=== PATIENT | male | born 1950 | race African-American/Black ===

== ENCOUNTER 2016-10-22 08:55 | Outpatient (CLI) | payer MEDICARE, OTHER ==
[2016-10-22 09:31] LABS: Anion Gap 15 mmol/L (10-20); BUN (Urea Nitrogen) 16 mg/dL (8.4-25.7); Calc. Creatinine Clearance 0 mL/min (70-130); Calcium 9.1 mg/dL (7.8-10.44); Carbon Dioxide 25 mmol/L (23-31); Chloride 106 mmol/L (98-107); Estimated GFR-MDRD Greater than 90; Glucose 128 mg/dL (80-115); Potassium 3.9 mmol/L (3.5-5.1); Sodium 142 mmol/L (136-145)
== END 2016-10-22 08:56 ==
LOC: MADLABBHPM 08:55
PROVIDERS: ATTEND Family Medicine
DX: E03.9 Hypothyroidism, unspecified (principal)
CPT/HCPCS: 36415; 80048; 84443

== ENCOUNTER 2016-12-10 10:56 | Outpatient (CLI) | payer MEDICARE, OTHER ==
--- NOTE | 2016-12-10 14:22 | RAD ---
THREE VIEWS LEFT SHOULDER: COMPARISON: None. HISTORY: Left shoulder pain for a month. FINDINGS: Three views of the left shoulder show no evidence of acute fracture or dislocation. No degenerative changes are seen. The visualized left thorax is unremarkable. IMPRESSION: Unremarkable exam. POS: [facility]
== END 2016-12-10 10:57 | disposition home or self-care (01) ==
LOC: MADRAD 10:56
PROVIDERS: ATTEND Family Medicine
DX: M25.512 Pain in left shoulder (principal)

== ENCOUNTER 2017-02-11 09:52 | Outpatient (CLI) | payer MEDICARE, OTHER | END 2017-02-11 09:53 | disposition home or self-care (01) | LOC: MADLABBHPM 09:52 | PROVIDERS: ATTEND Family Medicine | DX: M50.10 Cervical disc disorder with radiculopathy, unspecified cervical region (principal) | CPT/HCPCS: 36415; 82565; 84520 ==

== ENCOUNTER 2017-03-16 22:34 | Emergency (ER) | payer MEDICARE, OTHER ==
--- NOTE | 2017-03-16 23:52 | RAD ---
PORTABLE AP CHEST X-RAY 03/16/17 HISTORY: Chest pain. COMPARISON: 06/07/16 There has been interval placement of a dual lead left subclavian cardiac pacemaking device. The card iac silhouette and pulmonary vasculature are within normal limits for the portable technique of the exam. There is mild elevation of the right hemidiaphragm. Mild linear densities are seen on the late ral left mid lung zone which is probably related to vascular structures and atelectasis. The lungs a re otherwise clear. No other interval change. IMPRESSION: No acute cardiopulmonary process. POS: [facility]
[2017-03-16 23:59] LABS: INR-International Normal Ratio 1.1; PTT 32.4 SEC (22.9-36.1); Prothrombin Time 14.3 SEC (12.0-14.7)
[2017-03-17] LABS: #Basophils 0.1 thou/uL (0.0-0.2); #Eosinphils 0.2 thou/uL (0.0-0.7); #Lymphocytes 1.4 thou/uL (1.20-3.40); #Monocytes 0.5 thou/uL (0.11-0.59); #Neutrophils 4.5 thou/uL (1.40-6.50); %Basophils 1.4 % (0.0-1.0); %Eosinophils 2.9 % (0.0-10.0); %Lymphocytes 20.8 % (21.0-51.0); %Neutrophils 66.9 % (42.0-75.0); Hemoglobin 14.8 g/dL (14.0-18.0); Mean Corpuscular HGB CONC 32.5 g/dL (32.0-36.0); Mean Corpuscular Hemoglobin 30.3 pg (27.0-31.0); Mean Corpuscular Volume 93.3 fl (80.0-94.0); Mean Platelet Volume 7.5 fL (7.4-10.4); Platelet Count 168 thou/uL (130-400); RBC Distribution Width 12.6 % (11.5-14.5); Red Blood Cell (RBC) Count 4.89 mill/uL (4.70-6.10); White Blood Cell (WBC) Count 6.7 thou/uL (4.8-10.8)
[2017-03-17 00:05] LABS: ALT (SGPT) 37 U/L (8-55); AST (SGOT) 32 U/L (5-34); Albumin 3.8 g/dL (3.4-4.8); Alkaline Phosphatase 86 U/L (40-150); Anion Gap 15 mmol/L (10-20); BUN (Urea Nitrogen) 26 mg/dL (8.4-25.7); Bilirubin, Total 1.3 mg/dL (0.2-1.2); CK (CPK) 258 U/L (30-200); Calc. Creatinine Clearance 0 mL/min (70-130); Calcium 9.4 mg/dL (7.8-10.44); Carbon Dioxide 26 mmol/L (23-31); Chloride 107 mmol/L (98-107); Estimated GFR-MDRD 78; Globulin 3.7 g/dL (2.4-3.5); Glucose 203 mg/dL (80-115); Potassium 3.8 mmol/L (3.5-5.1); Protein, Total 7.5 g/dL (5.8-8.1); Sodium 144 mmol/L (136-145)
[2017-03-17 00:10] LABS: Clarity Clear (Clear)
[2017-03-17 00:11] LABS: Bacteria/HPF Rare-Few HPF (None Seen); Bilirubin Negative (Negative); Blood, Urine Trace (Negative); Glucose, Urine (Dipstick) 100 mg/dL (Negative); Leukocyte Negative (Negative); Nitrite Negative (Negative); Protein, Urine (Dipstick) 30 mg/dL (Neg-Trace); Specific Gravity, Urine 1.026 (1.005-1.030); Urobilinogen 0.2 mg/dL (0.2-1.0); WBC/HPF 0-3 HPF (0-3)
[2017-03-17 00:17] LABS: CKMB 2.6 ng/mL (0-6.6); Troponin I Less than 0.010 ng/mL (< 0.028)
== END 2017-03-17 00:48 | disposition home or self-care (01) ==
LOC: MADERS 22:34
DX: E86.0 Dehydration (principal); E11.9 Type 2 diabetes mellitus without complications; I10 Essential (primary) hypertension; Z79.82 Long term (current) use of aspirin; Z79.899 Other long term (current) drug therapy
CPT/HCPCS: 36415; 71010; 80053; 81001; 82553; 83735; 83880; 84443; 84484; 85025; 85610; 85730; 87086; 93005; 94760

== ENCOUNTER 2017-03-19 08:02 | Outpatient (CLI) | payer MEDICARE, OTHER | END 2017-03-19 08:03 | disposition home or self-care (01) | LOC: MADLABBHPM 08:02 | PROVIDERS: ATTEND Family Medicine | DX: M50.10 Cervical disc disorder with radiculopathy, unspecified cervical region (principal) | CPT/HCPCS: 36415; 82565; 84520 ==

== ENCOUNTER 2017-06-30 15:07 | Emergency (ER) | payer MEDICARE, OTHER ==
[2017-06-30] MEDS ORDERED: Dexamethasone 4 MG TAB ONE (15:37)
== END 2017-06-30 15:40 | disposition home or self-care (01) ==
LOC: MADERS 15:07
DX: T63.461A Toxic effect of venom of wasps, accidental (unintentional), initial encounter (principal); E11.9 Type 2 diabetes mellitus without complications; I10 Essential (primary) hypertension
CPT/HCPCS: 99282; J8540

== ENCOUNTER 2017-09-18 13:09 | Emergency (ER) | payer MEDICARE, OTHER ==
--- NOTE | 2017-09-18 16:50 | RAD ---
CHEST ONE VIEW: 09/18/17 HISTORY: Chest and abdomen pain. COMPARISON: 03/16/17 FINDINGS: The cardiac silhouette is magnified by projection. Pulmonary vasculature is unremarkable. There is no confluent air space consolidation, or evidence of free subdiaphragmatic gas. security monitor leads o verlie the chest. IMPRESSION: No active cardiopulmonary abnormalities are demonstrated. POS: [facility]
[2017-09-18] MEDS ORDERED: Ketorolac Tromethamine 30 MG/ML VIAL ONE (16:51)
[2017-09-18] MEDS ORDERED: Morphine 4 MG/ML VIAL ONE (16:51)
[2017-09-18] MEDS ORDERED: Ondansetron HCl/PF 4 MG/2 ML Vial ONE (16:51)
[2017-09-18 16:54] LABS: Bilirubin Negative (Negative); Blood, Urine Negative (Negative); Glucose, Urine (Dipstick) Negative (Negative); Leukocyte Negative (Negative); Nitrite Negative (Negative); Protein, Urine (Dipstick) Trace mg/dL (Neg-Trace); Specific Gravity, Urine 1.025 (1.005-1.030); pH, Urine 5.5 (5.0-9.0)
[2017-09-18 16:55] LABS: RBC/HPF 0-3 HPF (0-3)
[2017-09-18 16:56] LABS: Bacteria/HPF 1+ HPF (None Seen); WBC/HPF 0-3 HPF (0-3)
[2017-09-18 17:14] LABS: #Eosinphils 0.1 thou/uL (0.0-0.7); #Lymphocytes 1.2 thou/uL (1.20-3.40); #Monocytes 0.5 thou/uL (0.11-0.59); #Neutrophils 4.2 thou/uL (1.40-6.50); %Basophils 0.6 % (0.0-1.0); %Lymphocytes 19.7 % (21.0-51.0); %Monocytes 8.8 % (0.0-10.0); Mean Corpuscular Hemoglobin 29.9 pg (27.0-31.0); Mean Corpuscular Volume 93.3 fl (80.0-94.0); Mean Platelet Volume 5.7 fL (7.4-10.4); Platelet Count 196 thou/uL (130-400); RBC Distribution Width 12.8 % (11.5-14.5); Red Blood Cell (RBC) Count 5.01 mill/uL (4.70-6.10); White Blood Cell (WBC) Count 6.1 thou/uL (4.8-10.8)
[2017-09-18 17:34] LABS: ALT (SGPT) 39 U/L (8-55); AST (SGOT) 32 U/L (5-34); Albumin 3.8 g/dL (3.4-4.8); Alkaline Phosphatase 102 U/L (40-150); Anion Gap 18 mmol/L (10-20); BUN (Urea Nitrogen) 14 mg/dL (8.4-25.7); Bilirubin, Total 0.6 mg/dL (0.2-1.2); Calc. Creatinine Clearance 0 mL/min (70-130); Calcium 9.4 mg/dL (7.8-10.44); Carbon Dioxide 23 mmol/L (23-31); Chloride 106 mmol/L (98-107); Estimated GFR-MDRD Greater than 90; Globulin 3.6 g/dL (2.4-3.5); Glucose 108 mg/dL (80-115); Lipase 75 U/L (8-78); Potassium 4.2 mmol/L (3.5-5.1); Protein, Total 7.4 g/dL (5.8-8.1); Sodium 143 mmol/L (136-145)
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
== END 2017-09-18 20:14 | disposition home or self-care (01) ==
LOC: MADERS 13:09
DX: B34.9 Viral infection, unspecified (principal); R10.11 Right upper quadrant pain; R10.12 Left upper quadrant pain
CPT/HCPCS: 36415; 71010; 74176; 80053; 81001; 82150; 83605; 83690; 85025; 87086; 93005; 96374; 96375; J1885; J2270; J2405

== ENCOUNTER 2018-02-23 21:41 | Emergency (ER) | payer MEDICARE, MEDICAID ==
[2018-02-23] MEDS ORDERED: HYDROcodone/Acetaminophen 5/325 mg Tablet ONE (22:04)
[2018-02-23] MEDS ORDERED: Acetaminophen 325 MG TAB ONE (22:05)
[2018-02-23] MEDS ORDERED: Ibuprofen 800 MG TAB ONE (22:05)
[2018-02-23] MEDS ORDERED: AMOXicillin 250 MG CAP ONE (22:05)
== END 2018-02-23 22:13 | disposition home or self-care (01) ==
LOC: MADERS 21:41
DX: K02.9 Dental caries, unspecified (principal); J01.90 Acute sinusitis, unspecified; E11.9 Type 2 diabetes mellitus without complications; I10 Essential (primary) hypertension; Z86.73 Personal history of transient ischemic attack (TIA), and cerebral infarction without residual deficits
CPT/HCPCS: 99282

== ENCOUNTER 2018-10-27 08:22 | Outpatient (CLI) | payer MEDICARE, MEDICAID ==
--- NOTE | 2018-10-27 10:00 | ULT ---
ULTRASOUND RETROPERITONEUM LIMTED: (ABDOMINAL AORTA) HISTORY: 68-year-old male for abdominal aortic aneurysm screening. FINDINGS: The caliber of the entire abdominal aorta is normal. IMPRESSION: No abdominal aortic aneurysm. jn [] POS: [facility]
== END 2018-10-27 08:23 | disposition home or self-care (01) ==
LOC: MADULT 08:22
PROVIDERS: ATTEND Family Medicine
DX: Z13.6 Encounter for screening for cardiovascular disorders (principal)
CPT/HCPCS: 76706

== ENCOUNTER 2018-11-20 11:05 | Emergency (ER) | payer MEDICARE, MEDICAID ==
[2018-11-20 11:37] LABS: #Eosinphils 0.4 thou/uL (0.0-0.7); #Lymphocytes 1.1 thou/uL (1.20-3.40); #Monocytes 0.4 thou/uL (0.11-0.59); #Neutrophils 2.1 thou/uL (1.40-6.50); %Basophils 0.9 % (0.0-1.0); %Eosinophils 10.7 % (0.0-10.0); %Lymphocytes 27.9 % (21.0-51.0); %Monocytes 9.4 % (0.0-10.0); %Neutrophils 51.2 % (42.0-75.0); Hemoglobin 13.6 g/dL (14.0-18.0); Mean Corpuscular HGB CONC 31.6 g/dL (32.0-36.0); Mean Corpuscular Hemoglobin 30.3 pg (27.0-31.0); Mean Corpuscular Volume 95.9 fL (78.0-98.0); Mean Platelet Volume 5.9 fL (7.4-10.4); Platelet Count 178 thou/uL (130-400); White Blood Cell (WBC) Count 4.1 thou/uL (4.8-10.8)
--- NOTE | 2018-11-20 11:49 | RAD ---
PORTABLE CHEST: Date: 11/20/18 HISTORY: Chest pain. COMPARISON: 09/18/17 exam. FINDINGS: Heart size within normal limits. Pacemaker present. Lungs are clear of infiltrates. IMPRESSION: No active intrathoracic disease. POS: [facility]
[2018-11-20 11:59] LABS: ALT (SGPT) 30 U/L (8-55); AST (SGOT) 33 U/L (5-34); Albumin 3.9 g/dL (3.4-4.8); Alkaline Phosphatase 87 U/L (40-150); Anion Gap 11 mmol/L (10-20); BUN (Urea Nitrogen) 19 mg/dL (8.4-25.7); Bilirubin, Total 0.9 mg/dL (0.2-1.2); CK (CPK) 316 U/L (30-200); Calc. Creatinine Clearance 0 mL/min (70-130); Calcium 9.2 mg/dL (7.8-10.44); Carbon Dioxide 28 mmol/L (23-31); Chloride 108 mmol/L (98-107); Estimated GFR-MDRD Greater than 90; Globulin 3.2 g/dL (2.4-3.5); Glucose 70 mg/dL (80-115); Lipase 111 U/L (8-78); Protein, Total 7.1 g/dL (5.8-8.1); Sodium 143 mmol/L (136-145)
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
== END 2018-11-20 15:51 | disposition home or self-care (01) ==
LOC: MADERS 11:05
DX: R07.89 Other chest pain (principal); R10.84 Generalized abdominal pain; G89.29 Other chronic pain; I49.9 Cardiac arrhythmia, unspecified; I10 Essential (primary) hypertension; E11.9 Type 2 diabetes mellitus without complications; Z86.73 Personal history of transient ischemic attack (TIA), and cerebral infarction without residual deficits; Z79.82 Long term (current) use of aspirin; Z79.899 Other long term (current) drug therapy
CPT/HCPCS: 71045; 74176; 80053; 82550; 83690; 84484; 85025; 93005; 94760

== ENCOUNTER 2019-01-14 10:03 | Outpatient (CLI) | payer MEDICARE, MEDICAID ==
--- NOTE | 2019-01-14 10:28 | RAD ---
XR Shoulder Lt 3 View STANDARD: 01/14/2019 10:15 AM CLINICAL INDICATION: Chronic left shoulder pain without trauma. COMPARISON: Prior radiograph of the left shoulder dated 06/02/2018 FINDINGS: Three views of the left shoulder. No acute fracture or subluxation. Visualized lung chang are clear. There is a dual-lead pacemaker o verlying the left chest wall. IMPRESSION: No acute fracture or dislocation of the left shoulder.
[2019-01-14 10:33] LABS: ALT (SGPT) 31 U/L (8-55); AST (SGOT) 40 U/L (5-34); Albumin 3.9 g/dL (3.4-4.8); Alkaline Phosphatase 96 U/L (40-150); Anion Gap 11 mmol/L (10-20); BUN (Urea Nitrogen) 20 mg/dL (8.4-25.7); Bilirubin, Total 0.9 mg/dL (0.2-1.2); Calc. Creatinine Clearance 0 mL/min (70-130); Calcium 9.3 mg/dL (7.8-10.44); Carbon Dioxide 28 mmol/L (23-31); Chloride 108 mmol/L (98-107); Estimated GFR-MDRD 89; Globulin 3.4 g/dL (2.4-3.5); Glucose 98 mg/dL (80-115); Potassium 4.2 mmol/L (3.5-5.1); Protein, Total 7.3 g/dL (5.8-8.1); Sodium 143 mmol/L (136-145)
[2019-01-14 17:18] LABS: Hemoglobin A1c 5.6 % (4.0-6.0)
== END 2019-01-14 10:04 | disposition home or self-care (01) ==
LOC: MADLABBHPM 10:03
PROVIDERS: ATTEND Family Medicine
DX: M25.512 Pain in left shoulder (principal); E03.9 Hypothyroidism, unspecified; R74.8 Abnormal levels of other serum enzymes; Z86.39 Personal history of other endocrine, nutritional and metabolic disease
CPT/HCPCS: 36415; 80053; 83036; 84443

== ENCOUNTER 2019-06-17 11:11 | Outpatient (CLI) | payer MEDICARE, MEDICAID ==
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
--- NOTE | 2019-06-17 11:51 | RAD ---
XR Knee Lt 4 View STANDARD: 06/17/2019 11:20 AM CLINICAL INDICATION: Chronic left knee pain COMPARISON: None. FINDINGS: Bones: No acute fracture is demonstrated. Joints: There are marginal osteophytes affecting all major compartments of the left knee with mild me dial femorotibial joint compartmental narrowing suggested. There is chondrocalcinosis seen within the menisci. There is mild joint capsular distention.. Soft Tissue: No acute abnormality.. IMPRESSION: Moderate osteoarthrosis of left knee with chondrocalcinosis. There is mild joint capsular distention. .
== END 2019-06-17 11:12 | disposition home or self-care (01) ==
LOC: MADRAD 11:11
PROVIDERS: ATTEND Family Medicine
DX: M54.5 Low back pain (principal); M23.52 Chronic instability of knee, left knee; M17.12 Unilateral primary osteoarthritis, left knee; M25.852 Other specified joint disorders, left hip; M11.262 Other chondrocalcinosis, left knee; M47.816 Spondylosis without myelopathy or radiculopathy, lumbar region; W19.XXXA Unspecified fall, initial encounter
CPT/HCPCS: 72100

== ENCOUNTER 2019-11-11 10:28 | Outpatient (CLI) | payer MEDICARE, MEDICAID ==
[2019-11-11 10:49] LABS: #Eosinphils 0.2 thou/uL (0.0-0.7); #Lymphocytes 1.5 thou/uL (1.20-3.40); #Monocytes 0.4 thou/uL (0.11-0.59); #Neutrophils 1.6 thou/uL (1.40-6.50); %Basophils 0.8 % (0.0-1.0); %Eosinophils 6.5 % (0.0-10.0); %Lymphocytes 39.9 % (21.0-51.0); %Monocytes 10.1 % (0.0-10.0); %Neutrophils 42.7 % (42.0-75.0); Hemoglobin 15.2 g/dL (14.0-18.0); Mean Corpuscular HGB CONC 29.7 g/dL (32.0-36.0); Mean Corpuscular Hemoglobin 28.3 pg (27.0-31.0); Mean Corpuscular Volume 95.1 fL (78.0-98.0); Mean Platelet Volume 6.2 fL (7.4-10.4); Platelet Count 159 thou/uL (130-400); RBC Distribution Width 12.8 % (11.5-14.5); Red Blood Cell (RBC) Count 5.38 mill/uL (4.70-6.10); White Blood Cell (WBC) Count 3.7 thou/uL (4.8-10.8)
[2019-11-11 11:05] LABS: Anisocytosis SLIGHT = 6-15 cells (100X) (0-5/hpf); Platelet Morphology Comment Appears Adequate
[2019-11-11 11:12] LABS: ALT (SGPT) 24 U/L (8-55); AST (SGOT) 24 U/L (5-34); Albumin 4.2 g/dL (3.4-4.8); Alkaline Phosphatase 101 U/L (40-110); Anion Gap 13 mmol/L (10-20); BUN (Urea Nitrogen) 14 mg/dL (8.4-25.7); Bilirubin, Total 0.9 mg/dL (0.2-1.2); CRP (Inflammatory) Less than 0.50 mg/dL (= or < 0.5); Calc. Creatinine Clearance 0 mL/min (70-130); Calcium 9.3 mg/dL (7.8-10.44); Carbon Dioxide 28 mmol/L (23-31); Chloride 107 mmol/L (98-107); Estimated GFR-MDRD Greater than 90; Globulin 3.6 g/dL (2.4-3.5); Glucose 112 mg/dL (80-115); Potassium 4.4 mmol/L (3.5-5.1); Protein, Total 7.8 g/dL (5.8-8.1); Sodium 144 mmol/L (136-145); Uric Acid 3.8 mg/dL (3.5-7.2)
--- NOTE | 2019-11-11 12:42 | RAD ---
RIGHT SHOULDER 2 VIEWS: Date: 11/11/2019 HISTORY: Chronic pain with recent trauma. FINDINGS: There is some moderate arthrosis of the AC joint. There is also arthritic change of the glenohumeral joint. No fracture. IMPRESSION: Mild to moderate arthritic changes of the shoulder. POS: [facility]
--- NOTE | 2019-11-11 13:10 | RAD ---
RIGHT KNEE 3 VIEWS: Date: 11/11/2019 HISTORY: Chronic knee pain. FINDINGS: There are mild arthritic changes of the patellofemoral and medial compartment of the knee. A very tin y joint effusion is seen. IMPRESSION: Mild arthritic changes of the knee, which appear more pronounced at the patellofemoral joint space le bianka. POS: [facility]
[2019-11-11 17:35] LABS: HIV (1/2) Antibody/Antigen Non-Reactive (NonReactive); HIV 1/2 INDEX 0.27 S/CO (<1.00)
[2019-11-12 23:08] LABS: Chlam.trachomatis by PCR,Urine Not Detected (NotDetected)
== END 2019-11-11 10:29 | disposition home or self-care (01) ==
LOC: MADLABBHPM 10:28
PROVIDERS: ATTEND Family Medicine
DX: Z11.4 Encounter for screening for human immunodeficiency virus [HIV] (principal); Z11.3 Encounter for screening for infections with a predominantly sexual mode of transmission; M25.511 Pain in right shoulder; M25.561 Pain in right knee; M17.11 Unilateral primary osteoarthritis, right knee; M19.011 Primary osteoarthritis, right shoulder
CPT/HCPCS: 36415; 80053; 84550; 85025; 85652; 86140; 87389; 87491; 87591

== ENCOUNTER 2019-11-11 14:20 | Inpatient (IN) | payer MEDICARE, MEDICAID ==
[2019-11-11 14:25] VITALS: BMI 26.2
[2019-11-11] MEDS ORDERED: Acetaminophen 325 MG TAB PO PRN (15:06)
[2019-11-11] MEDS: Latanoprost 0.005% Ophth Soln 2.5 ml Bottle EA EYE SCH (21:08)
[2019-11-11] MEDS: Tamsulosin HCl 0.4 MG CAP PO SCH (21:09)
[2019-11-11] MEDS: FINASTERIDE 1 MG PO SCH (21:10)
[2019-11-11] MEDS: traMADol HCl 50 MG TAB PO PRN (21:14)
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
[2019-11-12] MEDS: Levothyroxine Sodium 100 MCG TAB PO SCH (05:36)
[2019-11-12] MEDS: traMADol HCl 50 MG TAB PO PRN (07:28)
[2019-11-12] MEDS: Aspirin 81 mg Enteric Coated Tablet PO SCH (08:30)
[2019-11-12] MEDS: Gabapentin 300 MG CAP PO SCH (08:30)
[2019-11-12] MEDS: methylPREDNISolone 4 mg Tablet PO SCH (08:30)
[2019-11-12] MEDS ORDERED: traMADol HCl 50 MG TAB PO PRN ×2 (11:49)
[2019-11-12] MEDS: Tamsulosin HCl 0.4 MG CAP PO SCH (21:14)
[2019-11-12] MEDS: Latanoprost 0.005% Ophth Soln 2.5 ml Bottle EA EYE SCH (21:14)
[2019-11-12] MEDS: FINASTERIDE 1 MG PO SCH (21:15)
[2019-11-13] MEDS: Levothyroxine Sodium 100 MCG TAB PO SCH (05:52)
[2019-11-13] MEDS: Gabapentin 300 MG CAP PO SCH (08:42)
[2019-11-13] MEDS: Aspirin 81 mg Enteric Coated Tablet PO SCH (08:42)
[2019-11-13] MEDS: methylPREDNISolone 4 mg Tablet PO SCH (08:42)
[2019-11-13] MEDS: Latanoprost 0.005% Ophth Soln 2.5 ml Bottle EA EYE SCH (20:15)
[2019-11-13] MEDS: Tamsulosin HCl 0.4 MG CAP PO SCH (20:15)
[2019-11-13] MEDS ORDERED: FINASTERIDE 1 MG PO SCH (21:00)
[2019-11-14] MEDS: Levothyroxine Sodium 100 MCG TAB PO SCH (05:38)
[2019-11-14] MEDS ORDERED: predniSONE 20 MG TAB PO SCH (08:00)
[2019-11-14] MEDS: Aspirin 81 mg Enteric Coated Tablet PO SCH (08:59)
[2019-11-14] MEDS: Gabapentin 300 MG CAP PO SCH (08:59)
[2019-11-14 09:21] VITALS: BP 120/71; TEMP 96.5
--- NOTE | 2019-11-16 15:16 | DIS ---
DATE OF ADMISSION: 11/11/2019 DATE OF DISCHARGE: 11/14/2019 CHIEF COMPLAINT: General weakness, severe pain, right shoulder, right knee pain and unsteady gait. DIAGNOSES: 1. Osteoarthritis, right shoulder. 2. Degenerative joint disease, right knee. 3. Deconditioning secondary to general weakness. 4. Unsteady gait. 5. Hypothyroidism. 6. Leukopenia, chronic, stable, asymptomatic. 7. Benign prostatic hypertrophy. 8. Neuropathic pain. DISPOSITION: Home. CONDITION ON DISCHARGE: Stable. MEDICATIONS: 1. Prednisone 30 mg p.o. daily for to start on 11/15/2019. 2. Levothyroxine 100 mcg p.o. q.a.m. 3. Gabapentin 300 mg p.o. daily. 4. Aspirin 81 mg p.o. daily. 5. Flonase 50 mg spray in each nostril, one spray in each nostril daily. 6. Tamsulosin 0.5 mg p.o. daily at bedtime. 7. Finasteride 1 mg p.o. at bedtime. DISCHARGE INSTRUCTIONS: DIET: Regular. ACTIVITY: Ad leodan. FOLLOWUP: 1. With Dr. Beltrán in 1 to 2 weeks. 2. Referred to [facility] for [facility], PT and OT. HISTORY OF THE PRESENT ILLNESS AND HOSPITAL COURSE: Mr. Burt is a 69-year-old male with significant history of CVA, TIA, chronic abnormality of gait secondary to impairment of balance deemed from the instability of the left knee and chronic left shoulder leading to recurrent falls in the past. The patient reports an acute right shoulder pain and right knee pain noted over the past few days prior to admission. The pain is associated with stiffness, inability to move his right arm and shoulder, difficulty doing above head activities and walking and persistent nocturnal pain with it. His x-ray of the right shoulder on 11/11/2019 showed [id number] arthritic change changes of the AC joint. There was no fracture and there was no arthritic change of the glenohumeral joint. X-rays of the right knee show on 11/11/2019, showed mild arthritic changes of the knee which appear more pronounced at the patellofemoral joint space level. CRP and ESR were normal. The patient was admitted directly to [facility] at [facility] for skilled rehab. The patient did well with rehab. He was treated with oral steroid and tramadol for pain. Prior to discharge, he was walking 500 feet using rolling walker with contact guard assist. He was noted to still have some slight unsteadiness on his feet after standing, slight fatigue and increased pain in the right shoulder when walking. On 11/14/2019, the patient is comfortable going back home. He chose to be referred to home health for outpatient therapy. The patient was deemed hemodynamically stable to go back home and would benefit further with continuous therapy at home. PHYSICAL EXAMINATION: Vital signs prior to discharge; blood pressure 120/71, temp 97, pulse 60, respirations 20, O2 98% on room air, weight 183 pounds and 3 ounces, height 6 feet. Job ID: [id number]
== END 2019-11-14 15:00 | disposition home or self-care (01) | DRG 554 ==
LOC: MADMS 14:20
PROVIDERS: ADMIT Family Medicine; ATTEND Family Medicine
DX: M19.011 Primary osteoarthritis, right shoulder (principal); Z86.73 Personal history of transient ischemic attack (TIA), and cerebral infarction without residual deficits; R26.9 Unspecified abnormalities of gait and mobility; M17.11 Unilateral primary osteoarthritis, right knee; E03.9 Hypothyroidism, unspecified; D72.819 Decreased white blood cell count, unspecified; N40.0 Benign prostatic hyperplasia without lower urinary tract symptoms; M23.52 Chronic instability of knee, left knee; K21.9 Gastro-esophageal reflux disease without esophagitis; Z98.890 Other specified postprocedural states; Z95.0 Presence of cardiac pacemaker; Z88.8 Allergy status to other drugs, medicaments and biological substances
CPT/HCPCS: 36415; 80053; 84550; 85025; 85652; 86140; 87389; 87491; 87591; J7509; J7512

== ENCOUNTER 2019-12-09 11:44 | Outpatient (CLI) | payer MEDICARE, MEDICAID ==
--- NOTE | 2019-12-09 11:59 | RAD ---
EXAM: 3 views of the right hand COMPARISON: None HISTORY: Hand pain and arthritis FINDINGS: 3 views of the hand shows no evidence of acute fracture or dislocation. Mild joint space na rrowing is seen in the metacarpophalangeal joints of the index and middle fingers. Joint space narrowing is seen in the DIP joint of the middle finger. No soft tissue swelling is present. IMPRESSION: Degenerative changes of the index and middle fingers without acute osseous abnormality.
== END 2019-12-09 11:45 | disposition home or self-care (01) ==
LOC: MADRAD 11:44
PROVIDERS: ATTEND Family Medicine
DX: M19.041 Primary osteoarthritis, right hand (principal)

== ENCOUNTER 2020-06-28 09:29 | Outpatient (CLI) | payer MEDICARE, MEDICAID ==
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
[2020-06-28 10:27] LABS: #Eosinphils 0.5 thou/uL (0.0-0.7); #Lymphocytes 1.5 thou/uL (1.20-3.40); #Monocytes 0.6 thou/uL (0.11-0.59); #Neutrophils 2.2 thou/uL (1.40-6.50); %Eosinophils 9.6 % (0.0-10.0); %Lymphocytes 31.2 % (21.0-51.0); %Monocytes 11.8 % (0.0-10.0); %Neutrophils 46.4 % (42.0-75.0); Hemoglobin 14.3 g/dL (14.0-18.0); Mean Corpuscular HGB CONC 31.1 g/dL (32.0-36.0); Mean Corpuscular Hemoglobin 29.1 pg (27.0-31.0); Mean Corpuscular Volume 93.4 fL (78.0-98.0); Mean Platelet Volume 5.9 fL (7.4-10.4); Platelet Count 224 thou/uL (130-400); RBC Distribution Width 13.3 % (11.5-14.5); White Blood Cell (WBC) Count 4.8 thou/uL (4.8-10.8)
[2020-06-28 10:46] LABS: ALT (SGPT) 29 U/L (8-55); AST (SGOT) 28 U/L (5-34); Albumin 3.9 g/dL (3.4-4.8); Alkaline Phosphatase 94 U/L (40-110); Anion Gap 13 mmol/L (10-20); BUN (Urea Nitrogen) 20 mg/dL (8.4-25.7); Calc. Creatinine Clearance 0 mL/min (70-130); Calcium 9.1 mg/dL (7.8-10.44); Carbon Dioxide 27 mmol/L (23-31); Chloride 106 mmol/L (98-107); Estimated GFR-MDRD 80; Globulin 3.8 g/dL (2.4-3.5); Glucose 141 mg/dL (80-115); Potassium 4.1 mmol/L (3.5-5.1); Protein, Total 7.7 g/dL (5.8-8.1); Sodium 142 mmol/L (136-145)
[2020-06-28 17:33] LABS: Hemoglobin A1c 6.7 % (4.0-6.0)
== END 2020-06-28 09:30 | disposition home or self-care (01) ==
LOC: MADRAD 09:29 → MADLAB 09:30
PROVIDERS: ATTEND Family Medicine
DX: M54.5 Low back pain (principal); E03.9 Hypothyroidism, unspecified; D72.819 Decreased white blood cell count, unspecified; Z86.39 Personal history of other endocrine, nutritional and metabolic disease; Z78.9 Other specified health status; M16.0 Bilateral primary osteoarthritis of hip; M47.816 Spondylosis without myelopathy or radiculopathy, lumbar region
CPT/HCPCS: 36415; 72100; 72170; 80053; 83036; 84443; 85025

== ENCOUNTER 2020-09-01 09:26 | Emergency (ER) | payer MEDICARE, MEDICAID ==
[2020-09-01] MEDS ORDERED: Acetaminophen 500 MG TAB ONE (09:58)
[2020-09-01] MEDS ORDERED: Ibuprofen 800 MG TAB ONE (09:58)
[2020-09-01] MEDS ORDERED: predniSONE 20 MG TAB ONE (10:34)
--- NOTE | 2020-09-01 11:02 | RAD ---
RIGHT KNEE 4 VIEWS: HISTORY: Fell off of ladder 3 months ago. Persistent knee pain. FINDINGS: There are moderate arthritic changes of the knee. Degenerative changes are most pronounced in the me dial compartment. A tiny joint effusion is present. No fracture. IMPRESSION: Moderate arthritic change of the knee. POS: [facility]
[2020-09-01 17:27] LABS: RBC Count-Automated (BF) 73 /cu.mm; WBC/Nucleated-Auto (BF) 149 uL
[2020-09-01 17:32] LABS: BF Color Yellow; Body Fluid Source Synovial Fluid; Clarity Hazy (Clear); Tube # EDTA
[2020-09-01 17:35] LABS: BF Segmented Neutrophils 4 %; Cell Count Non Hematic 66 %; Lymphocytes 30 %
== END 2020-09-01 10:40 | disposition home or self-care (01) ==
LOC: MADERS 09:26
DX: M25.461 Effusion, right knee (principal); M25.561 Pain in right knee; I49.9 Cardiac arrhythmia, unspecified; E11.9 Type 2 diabetes mellitus without complications; I10 Essential (primary) hypertension; Z79.84 Long term (current) use of oral hypoglycemic drugs; Z79.82 Long term (current) use of aspirin; Z86.73 Personal history of transient ischemic attack (TIA), and cerebral infarction without residual deficits; Z79.899 Other long term (current) drug therapy
CPT/HCPCS: 20611; 84560; 85060; 87070; 87205; 89051; J7512

== ENCOUNTER 2022-01-24 18:05 | Emergency (ER) | payer MEDICAID, MEDICARE ==
[2022-01-24 19:51] LABS: #Basophils 0.1 thou/uL (0.0-0.2); #Eosinphils 0.3 thou/uL (0.0-0.7); #Lymphocytes 1.7 thou/uL (1.20-3.40); #Monocytes 0.5 thou/uL (0.11-0.59); #Neutrophils 1.8 thou/uL (1.40-6.50); %Basophils 1.2 % (0.0-1.0); %Eosinophils 7.9 % (0.0-10.0); %Lymphocytes 39.2 % (21.0-51.0); %Monocytes 10.4 % (0.0-10.0); %Neutrophils 41.4 % (42.0-75.0); Hemoglobin 13.3 g/dL (14.0-18.0); Mean Corpuscular HGB CONC 30.8 g/dL (32.0-36.0); Mean Corpuscular Hemoglobin 28.9 pg (27.0-31.0); Mean Corpuscular Volume 93.6 fL (78.0-98.0); Mean Platelet Volume 7.6 fL (7.4-10.4); Platelet Count 175 thou/uL (130-400); RBC Distribution Width 13.4 % (11.5-14.5); Red Blood Cell (RBC) Count 4.62 mill/uL (4.70-6.10); White Blood Cell (WBC) Count 4.4 thou/uL (4.8-10.8)
[2022-01-24 19:56] LABS: Bilirubin Small (Negative); Blood, Urine Negative (Negative); Clarity Clear (Clear); Glucose, Urine (Dipstick) Negative (Negative); Ketone, Urine Negative (Negative); Leukocyte Negative (Negative); Nitrite Negative (Negative); Protein, Urine (Dipstick) Trace mg/dL (Neg-Trace); Urobilinogen 0.2 mg/dL (Less than 2)
[2022-01-24 20:04] LABS: ALT (SGPT) 14 U/L (8-55); AST (SGOT) 24 U/L (5-34); Alkaline Phosphatase 75 U/L (40-110); Anion Gap 16 mmol/L (10-20); BUN (Urea Nitrogen) 17 mg/dL (8.4-25.7); Bilirubin, Total 1.2 mg/dL (0.2-1.2); Calc. Creatinine Clearance 0 mL/min (70-130); Calcium 9.2 mg/dL (7.8-10.44); Carbon Dioxide 27 mmol/L (23-31); Chloride 106 mmol/L (98-107); Globulin 2.9 g/dL (2.4-3.5); Glucose 152 mg/dL (83-110); Lipase 20 U/L (8-78); Potassium 4.3 mmol/L (3.5-5.1); Protein, Total 6.9 g/dL (5.8-8.1); Sodium 145 mmol/L (136-145)
== END 2022-01-24 21:28 | disposition home or self-care (01) ==
LOC: MADERS 18:05
DX: R10.32 Left lower quadrant pain (principal); E11.9 Type 2 diabetes mellitus without complications; I10 Essential (primary) hypertension
CPT/HCPCS: 74176; 80053; 81003; 83690; 85025

== ENCOUNTER 2022-02-09 14:32 | Emergency (ER) | payer MEDICARE, MEDICAID ==
[2022-02-09] MEDS ORDERED: Aspirin Chewable 81 MG TAB ONE ×2 (15:06)
[2022-02-09 15:36] LABS: #Basophils 0.1 thou/uL (0.0-0.2); #Eosinphils 0.3 thou/uL (0.0-0.7); #Lymphocytes 1.5 thou/uL (1.20-3.40); #Monocytes 0.5 thou/uL (0.11-0.59); #Neutrophils 1.8 thou/uL (1.40-6.50); %Basophils 1.5 % (0.0-1.0); %Lymphocytes 36.7 % (21.0-51.0); %Monocytes 11.4 % (0.0-10.0); %Neutrophils 43.4 % (42.0-75.0); Hemoglobin 12.6 g/dL (14.0-18.0); Mean Corpuscular HGB CONC 31.1 g/dL (32.0-36.0); Mean Corpuscular Hemoglobin 28.9 pg (27.0-31.0); Mean Corpuscular Volume 92.9 fL (78.0-98.0); Mean Platelet Volume 7.2 fL (7.4-10.4); Platelet Count 145 thou/uL (130-400); RBC Distribution Width 13.6 % (11.5-14.5); Red Blood Cell (RBC) Count 4.36 mill/uL (4.70-6.10); White Blood Cell (WBC) Count 4.2 thou/uL (4.8-10.8)
[2022-02-09 15:55] LABS: ALT (SGPT) 12 U/L (8-55); AST (SGOT) 19 U/L (5-34); Albumin 3.6 g/dL (3.4-4.8); Alkaline Phosphatase 75 U/L (40-110); Anion Gap 13 mmol/L (10-20); BUN (Urea Nitrogen) 18 mg/dL (8.4-25.7); Bilirubin, Total 1.6 mg/dL (0.2-1.2); Calc. Creatinine Clearance 0 mL/min (70-130); Calcium 9.2 mg/dL (7.8-10.44); Carbon Dioxide 27 mmol/L (23-31); Chloride 109 mmol/L (98-107); Globulin 3.1 g/dL (2.4-3.5); Glucose 94 mg/dL (83-110); Magnesium 1.9 mg/dL (1.6-2.6); Protein, Total 6.7 g/dL (5.8-8.1); Sodium 145 mmol/L (136-145)
[2022-02-09 19:49] LABS: Troponin I Less than 0.010 ng/mL (< 0.028)
== END 2022-02-09 19:36 | disposition short-term general hospital (02) ==
LOC: MADERS 14:32
DX: R07.89 Other chest pain (principal); E11.9 Type 2 diabetes mellitus without complications; I10 Essential (primary) hypertension; Z79.899 Other long term (current) drug therapy; Z79.82 Long term (current) use of aspirin
CPT/HCPCS: 71045; 80053; 83735; 83880; 84443; 84484; 85025; 93005; 94760

== ENCOUNTER 2022-09-21 18:12 | Emergency (ER) | payer MEDICAID, MEDICARE ==
[2022-09-21] MEDS ORDERED: Dexamethasone 4 MG TAB ONE (19:34)
== END 2022-09-21 20:20 | disposition home or self-care (01) ==
LOC: MADERS 18:12
DX: J06.9 Acute upper respiratory infection, unspecified (principal); E11.9 Type 2 diabetes mellitus without complications; I10 Essential (primary) hypertension
CPT/HCPCS: 71046; J8540

== ENCOUNTER 2022-11-16 16:55 | Emergency (ER) | payer OTHER, MEDICAID | END 2022-11-16 17:32 | disposition home or self-care (01) | LOC: MADERS 16:55 | DX: T63.2X1A Toxic effect of venom of scorpion, accidental (unintentional), initial encounter (principal); I10 Essential (primary) hypertension; E11.9 Type 2 diabetes mellitus without complications; Z95.0 Presence of cardiac pacemaker | CPT/HCPCS: 99282 ==

== ENCOUNTER 2024-04-02 12:08 | Observation (INO) | payer OTHER, MEDICAID ==
[2024-04-02] MEDS ORDERED: Glucagon 1 MG/ML KIT IM PRN (12:26)
[2024-04-02] MEDS ORDERED: Dextrose 50% Abboject 50 ML SYRINGE SLOW IVP PRN (12:26)
[2024-04-02 12:54] VITALS: BMI 24.7
[2024-04-02 13:32] LABS: Hematocrit 43.6 % (42.0-52.0); Hemoglobin 13.1 g/dL (14.0-18.0); Mean Corpuscular HGB CONC 30.1 g/dL (32.0-36.0); Mean Corpuscular Hemoglobin 29.3 pg (27.0-31.0); Mean Corpuscular Volume 97.4 fl (78.0-98.0); Mean Platelet Volume 6.1 fL (7.4-10.4); Platelet Count 141 10x3/uL (130-400); RBC Distribution Width 13.9 % (11.5-14.5); Red Blood Cell (RBC) Count 4.48 mill/uL (4.70-6.10); White Blood Cell (WBC) Count 3.8 10x3/uL (4.8-10.8)
[2024-04-02 13:40] LABS: Anion Gap 13 mmol/L (10-20); BUN (Urea Nitrogen) 24 mg/dL (8.4-25.7); Calc. Creatinine Clearance 76 mL/min (70-130); Calcium 9.2 mg/dL (7.8-10.44); Carbon Dioxide 26 mmol/L (23-31); Chloride 107 mmol/L (98-107); Estimated GFR 78; Glucose 139 mg/dL (83-110); Potassium 4.4 mmol/L (3.5-5.1); Sodium 142 mmol/L (136-145)
[2024-04-02] MEDS ORDERED: Acetaminophen/Codeine 30-300mg Tablet PO PRN (14:26)
[2024-04-02] MEDS: Acetaminophen/Codeine 30-300mg Tablet PO PRN (16:36)
[2024-04-02] MEDS ORDERED: Gabapentin 100 MG CAP PO SCH (21:00)
[2024-04-02] MEDS ORDERED: Meloxicam 7.5 MG TAB PO SCH (21:00)
[2024-04-02] MEDS ORDERED: Non-Formulary Item 1 EACH (Cyclobenzaprine Hcl [Cyclobenzaprine Hcl] 5 MG Tablet) PO SCH (21:00)
[2024-04-02] MEDS: Tamsulosin HCl 0.4 MG CAP PO SCH (21:24)
[2024-04-02] MEDS: Atorvastatin Calcium 10 MG TAB PO SCH (21:24)
[2024-04-02] MEDS: Aspirin 81 mg Enteric Coated Tablet PO SCH (21:24)
[2024-04-02] MEDS: Gabapentin 300 MG CAP PO SCH (21:24)
[2024-04-02] MEDS: Cyclobenzaprine 10 MG TAB PO PRN (21:25)
[2024-04-02] MEDS: Latanoprost 0.005% Ophth Soln 2.5 ml Bottle EA EYE SCH (21:29)
[2024-04-02] MEDS: DorzolamidE/Timolol 2%/0.5% Ophth Soln 10 ml Bottle EA EYE SCH (21:29)
[2024-04-03] MEDS: Acetaminophen 325 MG TAB PO PRN (01:14)
[2024-04-03] MEDS: Levothyroxine Sodium 100 MCG TAB PO SCH (05:17)
[2024-04-03] MEDS: metFORMIN 500 MG TAB PO SCH (08:18)
[2024-04-03] MEDS: Meloxicam 7.5 MG TAB PO SCH (08:19)
[2024-04-03 11:48] VITALS: TEMP 97.5
[2024-04-03 11:53] VITALS: BP 107/66
[2024-04-06] MEDS ORDERED: Alendronate Sodium 70 mg Tablet PO SCH (06:00)
== END 2024-04-03 15:27 | disposition swing bed (61) ==
LOC: MADMS 12:10
PROVIDERS: ADMIT Family Medicine; ATTEND Emergency Medicine
DX: R26.2 Difficulty in walking, not elsewhere classified (principal); I69.354 Hemiplegia and hemiparesis following cerebral infarction affecting left non-dominant side; M19.012 Primary osteoarthritis, left shoulder; N40.0 Benign prostatic hyperplasia without lower urinary tract symptoms; E11.9 Type 2 diabetes mellitus without complications; G89.29 Other chronic pain; M54.50 Low back pain, unspecified; E78.5 Hyperlipidemia, unspecified; M16.11 Unilateral primary osteoarthritis, right hip; R26.81 Unsteadiness on feet; R53.81 Other malaise; M17.2 Bilateral post-traumatic osteoarthritis of knee; M81.0 Age-related osteoporosis without current pathological fracture; Z98.890 Other specified postprocedural states; Z91.041 Radiographic dye allergy status; Z79.82 Long term (current) use of aspirin; Z79.899 Other long term (current) drug therapy; Z79.84 Long term (current) use of oral hypoglycemic drugs
CPT/HCPCS: 80048; 82962 ×2; 85027; 97110 ×2; 97116 ×2; 97530 ×3; 97535; G0378 ×2; 36415; 36416

== ENCOUNTER 2024-04-03 15:37 | Inpatient (IN) | payer OTHER, MEDICAID ==
[2024-04-03 15:44] VITALS: BMI 24.7
[2024-04-03] MEDS: Tamsulosin HCl 0.4 MG CAP PO SCH (20:26)
[2024-04-03] MEDS: Cyclobenzaprine 10 MG TAB PO PRN (20:26)
[2024-04-03] MEDS: Atorvastatin Calcium 10 MG TAB PO SCH (20:26)
[2024-04-03] MEDS: Gabapentin 300 MG CAP PO SCH (20:27)
[2024-04-03] MEDS: Acetaminophen/Codeine 30-300mg Tablet PO PRN (20:27)
[2024-04-03] MEDS: Latanoprost 0.005% Ophth Soln 2.5 ml Bottle EA EYE SCH (20:28)
[2024-04-03] MEDS: DorzolamidE/Timolol 2%/0.5% Ophth Soln 10 ml Bottle EA EYE SCH (20:28)
[2024-04-04] MEDS: Levothyroxine Sodium 100 MCG TAB PO SCH (05:09)
[2024-04-04] MEDS ORDERED: metFORMIN 500 MG TAB PO SCH (08:00)
[2024-04-04] MEDS ORDERED: Aspirin 81 mg Enteric Coated Tablet PO SCH (09:00)
[2024-04-04] MEDS ORDERED: Gabapentin 100 MG CAP PO SCH (09:00)
[2024-04-04] MEDS ORDERED: Meloxicam 7.5 MG TAB PO SCH (09:00)
[2024-04-04] MEDS: metFORMIN 500 MG TAB PO SCH (09:01)
[2024-04-04] MEDS: Gabapentin 300 MG CAP PO SCH (09:01)
[2024-04-04] MEDS: Meloxicam 7.5 MG TAB PO SCH (09:02)
[2024-04-04] MEDS: Aspirin 81 mg Enteric Coated Tablet PO SCH (20:39)
[2024-04-04] MEDS: Atorvastatin Calcium 10 MG TAB PO SCH (20:40)
[2024-04-04] MEDS: Cyclobenzaprine 10 MG TAB PO SCH (20:40)
[2024-04-04] MEDS: Latanoprost 0.005% Ophth Soln 2.5 ml Bottle EA EYE SCH (20:42)
[2024-04-04] MEDS: DorzolamidE/Timolol 2%/0.5% Ophth Soln 10 ml Bottle EA EYE SCH (20:42)
[2024-04-04] MEDS: Tamsulosin HCl 0.4 MG CAP PO SCH (20:43)
[2024-04-04] MEDS ORDERED: Non-Formulary Item 1 EACH (Cyclobenzaprine Hcl [Cyclobenzaprine Hcl] 5 MG Tablet) PO SCH (21:00)
[2024-04-04] MEDS ORDERED: Non-Formulary Item 1 EACH (Latanoprost/Pf [Latanoprost 0.005% Eye Drop] 7.5 ML Drops) EA EYE SCH (21:00)
[2024-04-05] MEDS: Acetaminophen/Codeine 30-300mg Tablet PO PRN (00:04)
[2024-04-05] MEDS: Levothyroxine Sodium 100 MCG TAB PO SCH (05:25)
[2024-04-06] MEDS: Alendronate Sodium 70 mg Tablet PO SCH (05:03)
[2024-04-06] MEDS: Meloxicam 7.5 MG TAB PO SCH (08:12)
[2024-04-10] MEDS: Lidocaine 4% Patch TD SCH (20:38)
[2024-04-11] MEDS: Acetaminophen 325 MG TAB PO PRN (06:44)
[2024-04-11] MEDS: Transdermal Patch Removal TOP SCH (08:36)
[2024-04-11] MEDS ORDERED: Lidocaine 4% Patch TD SCH (09:00)
[2024-04-11] MEDS ORDERED: Transdermal Patch Removal TOP SCH (21:00)
[2024-04-13] MEDS: Lidocaine 4% Patch TD SCH (14:18)
[2024-04-14] MEDS: Transdermal Patch Removal TOP SCH (05:40)
[2024-04-14] MEDS: Lidocaine 4% Patch TD SCH (08:32)
[2024-04-15 09:26] VITALS: BMI 25.4
[2024-04-19 07:46] VITALS: BP 146/81; TEMP 97.4
== END 2024-04-19 16:12 | disposition home or self-care (01) | DRG 948 ==
LOC: MADMS 15:37
PROVIDERS: ADMIT Emergency Medicine; ATTEND Family Medicine
DX: R53.81 Other malaise (principal); I69.354 Hemiplegia and hemiparesis following cerebral infarction affecting left non-dominant side; M54.50 Low back pain, unspecified; N40.0 Benign prostatic hyperplasia without lower urinary tract symptoms; M19.90 Unspecified osteoarthritis, unspecified site; R26.81 Unsteadiness on feet; G89.29 Other chronic pain; E78.5 Hyperlipidemia, unspecified; M17.0 Bilateral primary osteoarthritis of knee; E11.40 Type 2 diabetes mellitus with diabetic neuropathy, unspecified; M81.0 Age-related osteoporosis without current pathological fracture; G47.33 Obstructive sleep apnea (adult) (pediatric); E03.9 Hypothyroidism, unspecified; Z91.041 Radiographic dye allergy status; Z79.82 Long term (current) use of aspirin; Z79.899 Other long term (current) drug therapy; Z79.890 Hormone replacement therapy; Z79.84 Long term (current) use of oral hypoglycemic drugs; Z95.0 Presence of cardiac pacemaker
CPT/HCPCS: 36415; 36416; 80048; 85027; G0378

== ENCOUNTER 2024-09-11 20:00 | Emergency (ER) | payer OTHER, MEDICAID ==
[2024-09-11 20:38] LABS: #Eosinophils 0.2 thou/uL (0.0-0.7); #Lymphocytes 1.2 thou/uL (1.20-3.40); #Monocytes 0.4 thou/uL (0.11-0.59); #Neutrophils 2.7 thou/uL (1.40-6.50); %Eosinophils 3.8 % (0.0-10.0); %Lymphocytes 26.9 % (21.0-51.0); %Monocytes 8.6 % (0.0-10.0); %Neutrophils 59.7 % (42.0-75.0); Hemoglobin 12.3 g/dL (14.0-18.0); Mean Corpuscular HGB CONC 30.8 g/dL (32.0-36.0); Mean Corpuscular Hemoglobin 29.7 pg (27.0-31.0); Mean Corpuscular Volume 96.6 fl (78.0-98.0); Mean Platelet Volume 6.4 fL (7.4-10.4); Platelet Count 170 10x3/uL (130-400); RBC Distribution Width 13.1 % (11.5-14.5); Red Blood Cell (RBC) Count 4.14 mill/uL (4.70-6.10); White Blood Cell (WBC) Count 4.6 10x3/uL (4.8-10.8)
[2024-09-11 20:42] LABS: Bilirubin Negative (Negative); Blood, Urine Negative (Negative); Clarity Clear (Clear); Glucose, Urine (Dipstick) Negative (Negative); Ketone, Urine Negative (Negative); Leukocyte Negative (Negative); Nitrite Negative (Negative); Protein, Urine (Dipstick) 30 mg/dL (Neg-Trace); Specific Gravity, Urine 1.025 (1.005-1.030)
[2024-09-11 20:47] LABS: Bacteria/HPF Rare-Few HPF (None Seen); CAUTI Indications for Culture Alt mental st,lethar; RBC/HPF 0-3 HPF (0-3); Squamous Epithelial 0-3 HPF (0-3); WBC/HPF 0-3 HPF (0-3)
[2024-09-11 20:48] LABS: Urine Culture Reflex No No
[2024-09-11 20:51] LABS: ALT (SGPT) 22 U/L (8-55); AST (SGOT) 39 U/L (5-34); Albumin 3.7 g/dL (3.4-4.8); Alkaline Phosphatase 68 U/L (40-110); Anion Gap 11 mmol/L (10-20); BUN (Urea Nitrogen) 24 mg/dL (8.4-25.7); Bilirubin, Total 0.7 mg/dL (0.2-1.2); Calc. Creatinine Clearance 0 mL/min (70-130); Calcium 8.8 mg/dL (7.8-10.44); Carbon Dioxide 25 mmol/L (23-31); Chloride 112 mmol/L (98-107); Estimated GFR 71; Globulin 3.4 g/dL (2.4-3.5); Glucose 135 mg/dL (83-110); Potassium 4.4 mmol/L (3.5-5.1); Protein, Total 7.1 g/dL (5.8-8.1); Sodium 144 mmol/L (136-145)
[2024-09-11 20:52] LABS: Troponin I Less than 0.010 ng/mL (< 0.028)
[2024-09-11] MEDS ORDERED: Sodium Chloride 0.9% 500 ML ONE (20:57)
== END 2024-09-11 22:13 | disposition home or self-care (01) ==
LOC: MADERS 20:00
DX: R55 Syncope and collapse (principal); I10 Essential (primary) hypertension; E11.9 Type 2 diabetes mellitus without complications; Z86.73 Personal history of transient ischemic attack (TIA), and cerebral infarction without residual deficits; Z79.82 Long term (current) use of aspirin; Z79.84 Long term (current) use of oral hypoglycemic drugs
CPT/HCPCS: 71045; 80053; 81001; 83880; 84484; 85025; 93005; J7030; 36415

== ENCOUNTER 2025-05-18 17:42 | Emergency (ER) | payer OTHER | END 2025-05-18 19:00 | disposition home or self-care (01) | LOC: MADERS 17:42 | DX: S80.02XA Contusion of left knee, initial encounter (principal); E11.9 Type 2 diabetes mellitus without complications; I10 Essential (primary) hypertension; Z86.73 Personal history of transient ischemic attack (TIA), and cerebral infarction without residual deficits; Z95.0 Presence of cardiac pacemaker; W20.8XXA Other cause of strike by thrown, projected or falling object, initial encounter | CPT/HCPCS: 99283 ==